=== PATIENT | male | born 1965 | race Caucasian/White ===

== ENCOUNTER 2017-09-16 13:56 | Emergency (ER) | payer MEDICARE, OTHER ==
[~2017-09-16] VITALS: Ht 182.9 cm; Wt 95.6 kg
[~2017-09-16 13:56] MED LIST: HYDR-762 PO; NAPR-260 PO
[2017-09-16 14:04] VITALS: Ht 182.9 cm; Wt 95.6 kg
--- NOTE | 2017-09-16 15:45 | RADRPT ---
PROCEDURE: Left hand x-ray CLINICAL INDICATION: left hand pain TECHNIQUE: AP, lateral and oblique views of the hand were obtained. COMPARISON: None FINDINGS: There is normal mineralization. No acute fracture or dislocation is seen. There are no significant degenerative changes. There is no significant soft tissue swelling. IMPRESSION: No definite abnormalities are identified. RPTAT:AAJJ Alexis Huddleston Physician Date Time Electronically viewed and signed by Alexis Huddleston Physician on 09/16/2017 15:45 /
--- NOTE | 2017-09-16 15:46 | RADRPT ---
PROCEDURE: XR Left Wrist. CLINICAL INDICATION: Pain, injury TECHNIQUE: AP, lateral and oblique views of the wrist were performed. COMPARISON: No prior studies are available for comparison. FINDINGS: No acute fracture dislocation is identified. The bones appear well mineralized. The joint spaces are well maintained. The soft tissues are normal. IMPRESSION: No definite abnormalities are identified. RPTAT:AAJJ Physician Radha Date Time Electronically viewed and signed by Alexis Huddleston Physician on 09/16/2017 15:46 /
--- NOTE | 2017-09-16 16:43 | ERD ---
ER Documentation Chief Complaint Chief Complaint left wrist pain s/p injury yesterday HPI 52-year-old male patient with no significant past medical history presents to the ED complaining of left wrist pain status post possible injury yesterday as he was trying to get out of his wheelchair. Patient reports that he was trying to put his weight onto his left wrist on the handle bar and heard a pop. Reports that he is ambidextrous. Denies any loss of sensation, loss of range of motion, fever, chills, weakness, numbness or tingling. ROS All systems reviewed and are negative except as per history of present illness. Medications Home Meds Active Scripts Naproxen* (Naprosyn*) 500 Mg Tablet, 500 MG PO BID Y for PAIN AND/OR INFLAMMATION, #30 TAB Prov:ESTER DAILY PA-C 03/19/17 Hydrocodone Bit-Acetaminophen* ([place]*) 10-325 Mg Tablet, 1 TAB PO Q6 Y for PAIN , #11 TAB Prov:ETIENNE CAMERON DO 08/02/15 Allergies Allergies: Coded Allergies: No Known Allergy (Unverified , 09/16/17) PMhx/Soc History of Surgery: Yes ("MANY BACK SURGERYS OVER THE YEARS") Anesthesia Reaction: No Hx Neurological Disorder: No Hx Respiratory Disorders: No Hx Cardiac Disorders: No Hx Psychiatric Problems: No Hx Miscellaneous Medical Probl: Yes (USES WHEELCHAIR) Hx Alcohol Use: No Hx Substance Use: Yes (CANNABIS) Hx Tobacco Use: Yes Smoking Status: Former smoker Physical Exam Vitals Vital Signs Date Time Temp Pulse Resp B/P Pulse Ox O2 Delivery O2 Flow Rate FiO2 09/16/17 14:04 98.1 79 20 124/64 99 Physical Exam Const: [id number], well-nourished. In no acute distress. Head: Atraumatic, normocephalic Eyes: Normal Conjunctiva without injection ENT: Normal external ear, nose and mouth. Neck: Full range of motion. No meningismus. Resp: Clear to auscultation bilaterally. No wheezing, rhonchi, rales, or crackles. No accessory muscle use. No retractions. Cardio: Regular rate and rhythm, no murmurs Skin: No petechiae or rashes Back: No midline tenderness. No CVA tenderness. Ext: No cyanosis, or edema. Cap refill less than 2 seconds. Distal pulses intact bilaterally. Tenderness palpation of the dorsal aspect of patient's left wrist. No erythema. Slight edema noted. No fluctuance or induration. No snuffbox tenderness noted. Neur: Awake and alert. Normal gait and coordination. Muscle strength 5/5. Sensation intact bilaterally. Psych: Normal Mood and Affect Procedures/MDM This is a 52-year-old male patient who is ambidextrous and injured his left wrist and hand. Patient is afebrile and nontoxic-appearing. Patient has normal vital signs. A left wrist and left hand x-ray was ordered to further evaluate patient. PROCEDURE: Left hand x-ray CLINICAL INDICATION: left hand pain TECHNIQUE: AP, lateral and oblique views of the hand were obtained. COMPARISON: None FINDINGS: There is normal mineralization. No acute fracture or dislocation is seen. There are no significant degenerative changes. There is no significant soft tissue swelling. IMPRESSION: No definite abnormalities are identified. PROCEDURE: XR Left Wrist. CLINICAL INDICATION: Pain, injury TECHNIQUE: AP, lateral and oblique views of the wrist were performed. COMPARISON: No prior studies are available for comparison. FINDINGS: No acute fracture dislocation is identified. The bones appear well mineralized. The joint spaces are well maintained. The soft tissues are normal. IMPRESSION: No definite abnormalities are identified. Patient is placed in a Velcro splint. Splint Assessment: Neurovascularly intact pre and post splint placement with good fit. Patient likely sustained a left wrist sprain. No snuffbox tenderness noted. Patient's extremity symptoms have stabilized while they have been evaluated in the department and are appropriate for outpatient follow up. No evidence of fractures, dislocations, compartment syndrome, neurologic injury, vascular injury, open joint, open fracture, tendon laceration, septic arthritis, osteomyelitis, DVT, foreign body, or other emergent conditions. Follow up with primary care physician in 1-2 days for a referral to an orthopedic physician if symptoms do not improve. Instructed patient to return to the ED sooner for any worsening symptoms. Patient's questions were answered. Patient understood and agreed with discharge plan. Patient discharged stable. Departure Diagnosis: Primary Impression: Wrist injury Encounter type: initial encounter Laterality: left Qualified Code: S69.92XA - Injury of left wrist, initial encounter Additional Impression: Hand injury Encounter type: initial encounter Laterality: left Qualified Code: S69.92XA - Injury of left hand, initial encounter Condition: Stable Patient Instructions: Wrist Sprain Referrals: [facility] YOU HAVE RECEIVED A MEDICAL SCREENING EXAM AND THE RESULTS INDICATE THAT YOU DO NOT HAVE A CONDITION THAT REQUIRES URGENT TREATMENT IN THE EMERGENCY DEPARTMENT. FURTHER EVALUATION AND TREATMENT OF YOUR CONDITION CAN WAIT UNTIL YOU ARE SEEN IN YOUR DOCTORS OFFICE WITHIN THE NEXT 1-2 DAYS. IT IS YOUR RESPONSIBILITY TO MAKE AN APPOINTMENT FOR FOLOW-UP CARE. IF YOU HAVE A PRIMARY DOCTOR --you should call your primary doctor and schedule an appointment IF YOU DO NOT HAVE A PRIMARY DOCTOR YOU CAN CALL OUR PHYSICIAN REFERRAL HOTLINE AT IF YOU CAN NOT AFFORD TO SEE A PHYSICIAN YOU CAN CHOSE FROM THE FOLLOWING [facility] [address] [facility]. [facility] [address] [facility] [address] [facility] [address] [facility] [address] [facility]. [facility] [address] [facility]. [facility] YOU HAVE RECEIVED A MEDICAL SCREENING EXAM AND THE RESULTS INDICATE THAT YOU DO NOT HAVE A CONDITION THAT REQUIRES URGENT TREATMENT IN THE EMERGENCY DEPARTMENT. FURTHER EVALUATION AND TREATMENT OF YOUR CONDITION CAN WAIT UNTIL YOU ARE SEEN IN YOUR DOCTORS OFFICE WITHIN THE NEXT 1-2 DAYS. IT IS YOUR RESPONSIBILITY TO MAKE AN APPOINTMENT FOR FOLOW-UP CARE. IF YOU HAVE A PRIMARY DOCTOR --you should call your primary doctor and schedule and appointment IF YOU DO NOT HAVE A PRIMARY DOCTOR YOU CAN CALL OUR PHYSICIAN REFERRAL HOTLINE AT . IF YOU CAN NOT AFFORD TO SEE A PHYSICIAN YOU CAN CHOSE FROM THE FOLLOWING [facility]: [facility] [address] [place] [address] [facility] [address] [place] [address] [facility] [address] [place] [address] [facility] Urgent Care 7 a.m.- 11 p.m. Every Day of the Week NO APPOINTMENT OR AUTHORIZATION NEEDED [facility] Hours: Sat-Sat 9:00 AM - 5:00 PM Additional Instructions: Call your primary care doctor TOMORROW for an appointment during the next 2-3 days for a referral to an orthopedic physician if symptoms do not improve.See the doctor sooner or return here if your condition worsens before your appointment time. NOE HERRERA PA-C Sep 16, 2017 16:43
== END 2017-09-16 16:52 | disposition home or self-care (01) ==
LOC: FTE 13:56
DX: S69.92XA Unspecified injury of left wrist, hand and finger(s), initial encounter (principal); S09.90XA Unspecified injury of head, initial encounter; X50.9XXA Other and unspecified overexertion or strenuous movements or postures, initial encounter; Y92.9 Unspecified place or not applicable; Z87.891 Personal history of nicotine dependence

== ENCOUNTER 2017-09-24 12:56 | Emergency (ER) | payer MEDICARE, OTHER ==
[~2017-09-24] VITALS: Ht 182.9 cm; Wt 99.0 kg
[2017-09-24 13:10] VITALS: Ht 182.9 cm; Wt 99.0 kg
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
== END 2017-09-24 19:56 | disposition home or self-care (01) ==
LOC: FTE 12:56
DX: M25.511 Pain in right shoulder (principal); M54.2 Cervicalgia; R51 Headache; M25.521 Pain in right elbow; M25.561 Pain in right knee; F17.210 Nicotine dependence, cigarettes, uncomplicated
CPT/HCPCS: 70450; 71010; 71100; 72072; 72100; 72125